=== PATIENT | male | born 1960 | race Caucasian/White ===

== ENCOUNTER 2018-04-26 17:46 | Emergency (ER) | payer MEDICAID ==
[~2018-04-26] VITALS: Ht 195.6 cm; Wt 97.5 kg
[2018-04-26 18:00] VITALS: BP 132/96
--- NOTE | 2018-04-26 18:00 | NUR ---
ED Nurse Note: PT WALKED IN TO ER TODAY FROM HOME. AOX4. PT PRESENTS WITH LACERATION TO TOP OF HEAD AFTER BUMPING HIS HEAD ON A TREE BRANCH X TODAY AROUND 1500. PT DENIES LOC. PT DENIES BLOOD THINNER USE. LACERATION NOT ACTIVELY BLEEDING AT THIS TIME. PETER ARNOLD AT BEDSIDE FOR EVALUATION.
[2018-04-26] MEDS ORDERED: Bacitracin Oint UD TOPIC ONE (18:15)
[2018-04-26] MEDS ORDERED: Tetanus/Diptheria/Pertussis Vaccine 0.5ml Syr IM ONE (18:15)
[2018-04-26] MEDS ORDERED: Acetaminophen 500mg (ES) tab ORAL ONE (18:15)
--- NOTE | 2018-04-26 18:17 | Emergency Room Report ---
History of Present Illness General Chief Complaint: Laceration Source: Patient Present Illness HPI 57-year-old male patient presents the ER complaining of laceration on top of the head. Reports he was hiking male who comes earlier today when a tree scratched his head. Reports bleeding at site of injury, states well controlled at this time. Denies loss consciousness. Denies vomiting or vision changes. Reports drove to urgent cares however states that he did not take his insurance so he then went to his primary care doctor who instructed him come to the ER to have the laceration repaired. Does not know tetanus vaccination status. Denies fever, chest pain, shortness of breath. Allergies: Coded Allergies: No Known Allergies (Unverified , 04/26/18) Patient History Past Medical History: see triage record Reviewed Nursing Documentation: PMH: Agreed; PSxH: Agreed Nursing Documentation-PMH Past Medical History: No History, Except For Hx Asthma: Yes Review of Systems All Other Systems: negative except mentioned in HPI Physical Exam Vital Signs Date Time Temp Pulse Resp B/P (MAP) Pulse Ox O2 Delivery O2 Flow Rate FiO2 04/26/18 17:58 66 20 138/101 98 Room Air Sp02 EP Interpretation: reviewed, normal General Appearance: well appearing, no apparent distress, alert, GCS 15, non- toxic Head: normocephalic, atraumatic Eyes: bilateral eye normal inspection, bilateral eye PERRL ENT: hearing grossly normal, normal pharynx, no angioedema, normal voice, uvula midline, moist mucus membranes Neck: full range of motion Respiratory: lungs clear, normal breath sounds, no rhonchi, no respiratory distress, no accessory muscle use, no wheezing, speaking full sentences Cardiovascular #1: regular rate, rhythm, no edema Musculoskeletal: back normal, digits/nails normal, gait/station normal, normal range of motion, non-tender Neurologic: alert, oriented x3, responsive, 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, motor strength/tone normal, sensory intact, cerebellar normal, normal gait, speech normal Skin: laceration - 3cm hookshaped laceration on scalp, bleeding well controlled , no surrounding erythema or edema Procedures Laceration/Wound Repair Laceration/Wound Repair : Consent: Verbal Wound Location: head - scalp Wound's Depth, Shape: superficial Wound Length (cm): 2 Wound Explored: contaminated Irrigated w/ Saline (ccs): 10 Anesthesia: other - topical LET Volume Anesthetic (ccs): 2 Wound Debrided: extensive Wound Repaired With: gail Number of Sutures: 4 Sterile Dressing Applied?: No Splint Applied?: No Sling Applied?: No Patient Tolerated: Well Complications: None Medical Decision Making PA Attestation Dr. Ritter is my supervising Physician whom patient management has been discussed with. Diagnostic Impression: Primary Impression: Scalp laceration ER Course Pt presents to ED c/o laceration on scalp s/p hit by a tree branch. DDX considered but are not limited to laceration, abrasion, contusion, cellulitis, ICH, skull fracture. No focal neuro deficits, cranial nerves intact as tested, denies loss of consciousness, does not require CT head. VITAL SIGNS are WNL, patient is afebrile Ordered CT head, lidocaine, TDap. ED INTERVENTIONS: Wound was cleaned and copiously irrigated using normal saline, no FB removed. Local block using topical LET. Laceration repaired with gail. See procedure note. 4 gail placed. Wound cleaned and covered using sterile dressing and Bacitracin. Keep dressing clean and dry. Followup for wound check and staple removal. TDAP provided. Patient OK for discharge to home. Patient resting comfortably, in no acute distress, nontoxic appearing. DISCHARGE: Rx provided for Bacitracin Rx provided for Tylenol At this time pt is stable for d/c to home. Patient resting comfortably, in no acute distress, nontoxic appearing, talking without difficulty. Will provide with patient care instructions and any necessary prescriptions. Patient to take medication as instructed. Care plan and follow-up instructions provided. Patient questions asked and answered. Patient reports understanding and agreement to treatment plan. Patient instructed to follow-up with primary care provider in 1-3 days for wound check and 5-7 days for removal of gail. Patient instructed to followup with PCP to discuss further treatment plan and ability to go to work, ER precautions given. Patient instructed to return to ER immediately for any new or worsening of symptoms. - Please note that this Emergency Department Report was dictated using [employer] manager technology software, occasionally this can lead to erroneous entry secondary to interpretation by the dictation equipment. Last Vital Signs Date Time Temp Pulse Resp B/P (MAP) Pulse Ox O2 Delivery O2 Flow Rate FiO2 04/26/18 17:58 66 20 138/101 98 Room Air Status: improved Disposition: HOME, SELF-CARE Condition: Stable Scripts Acetaminophen* (TYLENOL EXTRA STRENGTH*) 500 Mg Tablet 500 MG ORAL Q8H PRN for Prn Headache/Temp > 101, #30 TAB 0 Refills Prov: Meliton Lorenz 04/26/18 Bacitracin/Polymyxin B Sulfate (BACITRACIN-POLYMYXIN OINTMENT) 28.35 Gm Oint...g. 1 APPLIC TP BID, #28 GM Prov: Meliton Lorenz 04/26/18 Patient Instructions: Nonsutured Laceration Care Additional Instructions: Patient instructed to follow-up with primary care provider in 2-3 days for wound check Staple removal in 5 -7 days. Take medications as directed. Keep wound clean and dry. Patient questions asked and answered. ER precautions given, patient instructed to return to ER immediately for any new or worsening of symptoms. Meliton Lorenz Apr 26, 2018 18:17
[2018-04-26] MEDS ORDERED: LET 3ml Soln TOPIC ONE (18:30)
--- NOTE | 2018-04-26 19:12 | NUR ---
ED Nurse Note: REPORT GIVEN TO DARIUS GARCIA.
--- NOTE | 2018-04-26 19:15 | NUR ---
ED Nurse Note: Received Pt and report from day shift. Knowing PA Jovanny will treat Pt's wound as soon, will assist PA Jovanny with treatment.
[2018-04-26] MEDS ORDERED: TYLENOL EXTRA500 MG ORAL (19:43)
[2018-04-26] MEDS ORDERED: BACITRACIN-P28.35 GM TP (19:43)
--- NOTE | 2018-04-26 19:50 | NUR ---
ED Nurse Note: patient is being discharged from ED after being cleared by ERMD, patient is and oriented x4, ambulatory with a steady gait, VSS. patient acknowledges the need to follow up with PMd or a clinic within 5-7 days, patient was advised to return if symptoms worsen, patient's prescriptions in hand, ID band removed. Pt walked out unit withj steady gait.
[2018-04-26 21:30] VITALS: BP 128/84
== END 2018-04-26 19:50 | disposition home or self-care (01) ==
LOC: EMR 18:28
DX: S01.01XA Laceration without foreign body of scalp, initial encounter (principal); W22.8XXA Striking against or struck by other objects, initial encounter; Y92.89 Other specified places as the place of occurrence of the external cause; Z23 Encounter for immunization; J45.909 Unspecified asthma, uncomplicated
CPT/HCPCS: 12001; 90471; 90715; 99283; Z7502